=== PATIENT | female | born 1975 | race Caucasian/White ===

== ENCOUNTER → 2020-10-31 | Outpatient (CLI) | payer MEDICARE, OTHER ==
[2020-10-31 10:02] LABS: RBC (AUTOMATED) 100 10^6 (0); WBC (AUTOMATED 1 10^3 (0-5)
[2020-10-31 10:21] LABS: GLUCOSE,CSF 57 mg/dL (50-80); TOTAL PROTEIN,CSF 53 mg/dL (20-45)
[2020-11-04 18:11] LABS: MYELIN BASIC PROTEIN, CSF 7.7 ng/mL (0.0-3.7)
[2020-11-05 14:11] LABS: CSF IGG INDEX 0.5 (0.0-0.7); IMMUNOGLOBULIN G, QN, SERUM 792 mg/dL (586-1602)
== END ==
LOC: RAD 07:45
PROVIDERS: Psychiatry & Neurology Neurology
PROC: 009U3ZX Drainage of Spinal Canal, Percutaneous Approach, Diagnostic (ICD-10-PCS; principal; 2020-10-31)
DX: R93.0 Abnormal findings on diagnostic imaging of skull and head, not elsewhere classified (principal)
CPT/HCPCS: 82040; 82784; 82945; 83873; 83916; 84157; 89051

== ENCOUNTER 2020-11-04 15:32 | Emergency (ER) | payer MEDICARE, OTHER ==
[2020-11-04 17:14] LABS: RED BLOOD COUNT 4.75 M/UL (4.00-5.10); WHITE BLOOD COUNT 13.5 K/UL (4.5-11.0)
== END 2020-11-04 21:13 | disposition home or self-care (01) ==
LOC: ER1 15:32
PROVIDERS: Family Medicine
DX: G97.1 Other reaction to spinal and lumbar puncture (principal); F41.9 Anxiety disorder, unspecified; Z20.822 Contact with and (suspected) exposure to COVID-19; F17.200 Nicotine dependence, unspecified, uncomplicated; Z88.0 Allergy status to penicillin
CPT/HCPCS: 85025; 96365; 96375; 99284; J1885; J2405; J7030; U0002